=== PATIENT | male | born 1960 | race Caucasian/White ===

== ENCOUNTER 2019-04-03 07:23 | Emergency (ER) | payer BC ==
[~2019-04-03] VITALS: Ht 175.3 cm; Wt 105.7 kg
[2019-04-03] MEDS ORDERED: TETANUS/DIPHTHERIA TOX ADULT 0.5 ML SYR IM STA (07:41)
[2019-04-03] MEDS ORDERED: TETANUS/DIPHTHERIA TOX ADULT 0.5 ML SYR ONE (08:05)
--- NOTE | 2019-04-03 08:09 | Diagnostic Imaging Report ---
Exam: Toes 3 views History: Pain, trauma Comparison: None. Findings: No fracture or malalignment. Joint spaces preserved. No abnormal soft tissue calcification or soft tissue defect. Impression: No acute osseous abnormality Signed by: Dr. Armand Jones M.D. on 04/03/2019 8:06 AM
[2019-04-03 08:22] VITALS: BP 123/81
== END 2019-04-03 08:35 | disposition home or self-care (01) ==
LOC: FSED 07:23
DX: S90.122A Contusion of left lesser toe(s) without damage to nail, initial encounter (principal); W22.8XXA Striking against or struck by other objects, initial encounter; Y92.019 Unspecified place in single-family (private) house as the place of occurrence of the external cause; I10 Essential (primary) hypertension; E11.9 Type 2 diabetes mellitus without complications; Z88.0 Allergy status to penicillin
CPT/HCPCS: 90471; 90714; 96372; 99283